=== PATIENT | female | born 1980 | race American Indian/Alaskan Native ===

== ENCOUNTER 2016-10-16 00:36 | Emergency (ER) | payer MEDICAID ==
[2016-10-16] MEDS ORDERED: TETRACAINE 0.5% OS ONE (03:38)
[2016-10-16] MEDS ORDERED: FUL-GLO OP ONE (03:38)
--- NOTE | 2016-10-16 03:38 | Emergency Department Report ---
ED Eye Problem HPI - General Chief complaint: Eye Problems Stated complaint: EYE PAIN Time Seen by Provider: 10/16/16 03:32 Source: patient, family Mode of arrival: Ambulatory Limitations: No Limitations - History of Present Illness Initial comments: Patient here reports that she went to [facility] yesterday and was diagnosed with left corneal ulcer. She said he did not give her prescription care is there was something going on with her insurance and he would not go any further and told her to come to the emergency room for pain control. She said that he told her that he thinks it was caused from her contacts which she took on Wednesday which was 3 days ago. She states that she noticed the redness with eye pain a 10 out of 10 this when she took her contact out. Denies any blurred vision. Denies loss of vision. Patient states she has poor vision to her eyes and she were contacts. She does not have any glasses in the porous vision is through left eye baseline. No [id number] medication taken. Denies any dizziness or nausea. Denies any injury to eye. MD chief complaint: eye pain, eye redness, other (wears contact lenses) Onset/Timin -: days(s) Onset Description: sudden Location: left eye Place: home If Injury: other (contact lenses) Eye Symptoms: burning, redness, photophobia Severity: severe Severity scale (0 -10): 10 If Pain, Quality: burning Consistency: constant Context: contact lens use Associated Symptoms: none Treatments Prior to Arrival: removed contact lens - Related Data Patient Tetanus UTD: Yes Previous Rx's Medication Instructions Recorded Last Taken Type Acetaminophen/Codeine [Tylenol 1 tab PO Q6H PRN #12 tab 10/16/16 Unknown Rx /Codeine # 3 tab] Ibuprofen [Motrin] 600 mg PO Q8H PRN #15 tablet 10/16/16 Unknown Rx Ofloxacin 0.3% [Floxin Otic] 2 drops OS PKCONSULT #1 bottle 10/16/16 Unknown Rx Allergies Allergy/AdvReac Type Severity Reaction Status Date / Time hydrocodone Allergy Vomiting Verified 06/05/15 18:27 ED Review of Systems ROS: Stated complaint: EYE PAIN Other details as noted in HPI Comment: All other systems reviewed and negative Constitutional: denies: chills, fever Eyes: eye pain. denies: eye discharge, vision change ENT: denies: ear pain, throat pain, congestion Respiratory: no symptoms reported Cardiovascular: denies: chest pain, palpitations, edema, syncope Gastrointestinal: denies: abdominal pain, nausea, vomiting, diarrhea Musculoskeletal: denies: back pain, joint swelling, arthralgia, myalgia Skin: denies: rash Neurological: denies: headache, weakness, numbness, paresthesias, confusion, abnormal gait, vertigo ED Past Medical Hx - Past Medical History Previous Medical History?: Yes Hx Hypertension: No Hx Seizures: Yes Hx Asthma: No Additional medical history: Vaginal delivery 2000, Left ankle injury - Surgical History Past Surgical History?: Yes Additional Surgical History: Left ankle surgery - Family History Family history: hypertension - Social History Smoking Status: Never Smoker Substance Use Type: None - Medications Home Medications: Home Medications Medication Instructions Recorded Confirmed Last Taken Type Acetaminophen/Codeine [Tylenol 1 tab PO Q6H PRN #12 tab 10/16/16 Unknown Rx /Codeine # 3 tab] Ibuprofen [Motrin] 600 mg PO Q8H PRN #15 tablet 10/16/16 Unknown Rx Ofloxacin 0.3% [Floxin Otic] 2 drops OS PKCONSULT #1 bottle 10/16/16 Unknown Rx ED Physical Exam - General Limitations: No Limitations General appearance: alert, in no apparent distress - Head Head exam: Present: atraumatic, normocephalic, normal inspection - Eye Eye exam: Present: normal appearance, PERRL, EOMI. Absent: scleral icterus, conjunctival injection, nystagmus, periorbital swelling, periorbital tenderness Pupils: Present: normal accommodation - Expanded Eye Exam Expanded Eyelids: Normal Inspection: Right, Swelling: Left Pupils: Regular, Round: Bilateral, Reactive: Bilateral Sclera/Conjunctival: Normal Inspection: Bilateral Anterior chamber: Normal Inspection: Bilateral Posterior chamber: Normal Inspection: Bilateral Visual acuity (R) = 20/: 70 (2050 both eyes) Visual acuity (L) = 20/: 100 With correction: No (uncorrecte) IOP (R) in mmH IOP (L) in mmH IOP measured with: Tonopen - ENT ENT exam: Present: normal exam, normal orophraynx, mucous membranes moist, TM's normal bilaterally, normal external ear exam - Neck Neck exam: Present: normal inspection, full ROM. Absent: tenderness, meningismus, lymphadenopathy - Respiratory Respiratory exam: Present: normal lung sounds bilaterally. Absent: respiratory distress, chest wall tenderness - Cardiovascular Cardiovascular Exam: Present: regular rate, normal rhythm, normal heart sounds - GI/Abdominal GI/Abdominal exam: Present: soft, normal bowel sounds. Absent: distended, tenderness, guarding, rebound, rigid - Extremities Exam Extremities exam: Present: normal inspection, full ROM, normal capillary refill. Absent: tenderness, pedal edema, joint swelling, calf tenderness - Back Exam Back exam: Present: normal inspection, full ROM. Absent: tenderness, CVA tenderness (R), CVA tenderness (L), muscle spasm, paraspinal tenderness, vertebral tenderness, rash noted - Neurological Exam Neurological exam: Present: alert, oriented X3, normal gait, reflexes normal. Absent: motor sensory deficit - Psychiatric Psychiatric exam: Present: normal affect, normal mood - Skin Skin exam: Present: warm, dry, intact, normal color. Absent: rash ED Course Vital Signs 10/16/16 10/16/16 00:48 04:45 Temperature 99.1 F 98.2 F Pulse Rate 88 71 Respiratory 20 16 Rate Blood Pressure 136/100 Blood Pressure 138/94 [Right] O2 Sat by Pulse 100 96 Oximetry - Reevaluation(s) Reevaluation #1: 10/16/16 05:07 Eye pressures measure and are within normal limits. 10/16/16 05:07 See procedure note for Eye testing . 10/16/16 07:18 - Procedure Description Procedures done: Left eye exam: 2 drops of tetracaine instilled in left eye, fluorescein staining placed in left eye and left eye and examined under Leo lamp with small superficial corneal abrasion noted.patient's tetanus vaccine is up-to-date. ED Medical Decision Making - Medical Decision Making ED course:Patient here reports that she went to [facility] yesterday and was diagnosed with left corneal ulcer. She said he did not give her prescription care is there was something going on with her insurance and he would not go any further and told her to come to the emergency room for pain control. She said that he told her that he thinks it was caused from her contacts which she took on Wednesday which was 3 days ago. Eye pressure done see documentation for details. I collaborated with Dr. James on patient presentation, clinical findings and plans to refer along with treatment plan. Diagnostic and labs: SEE procedure note for leo lamp testing. Patient found to have left corneal abrasion and this was explained to her in detail. I told her she will need to follow up with director global development and gave her referral to director global development. I told her to call today to schedule an appointment. Review of previous visits: Assessment: Plan :follow-up with Dr. Dr. Biggs . Take Tylenol No. 3 while urine home and Motrin while you are driving. Patient discharged home in stable condition to follow up with her director global development. Critical care attestation.: If time is entered above; I have spent that time in minutes in the direct care of this critically ill patient, excluding procedure time. ED Disposition Clinical Impression: Corneal ulcer, left, Left eye pain Disposition: DC- TO HOME OR SELFCARE Is pt being admited?: No Does the pt Need Aspirin: No Condition: Stable Instructions: Corneal Ulcer (ED), Eye Pain (ED) Additional Instructions: Please follow up with director global development please call after 9:00 for follow-up appointment from emergency room. Please return to the emergency room if you have increased pain, increased pressure and worsening symptoms into the left eye. It is very important that you follow up with director global development for further evaluation treatment of left corneal ulcer as this can cause loss of vision. Please use antibiotic Drops as instructed Tylenol #3 can cause drowsiness so please do not drive or operate heavy machinery while taking this medication. Please do not wear any contacts in your eyes until your eyes are fully healed Prescriptions: Acetaminophen/Codeine [Tylenol /Codeine # 3 tab] 1 tab PO Q6H PRN #12 tab PRN Reason: Pain Ibuprofen [Motrin] 600 mg PO Q8H PRN #15 tablet PRN Reason: Pain Ofloxacin 0.3% [Floxin Otic] 2 drops OS PKCONSULT #1 bottle Referrals: JUSTINO BIGGS MD [Staff Physician] - 10/16/16 9:00 am Forms: Accompanied Note, Work/School Release Form(ED)
[2016-10-16 04:46] VITALS: BP 138/94
== END 2016-10-16 05:19 | disposition home or self-care (01) ==
LOC: ED 00:36
DX: H16.002 Unspecified corneal ulcer, left eye (principal); Z88.8 Allergy status to other drugs, medicaments and biological substances
CPT/HCPCS: 99283